=== PATIENT | male | born 1990 | race Caucasian/White ===

== ENCOUNTER 2021-06-30 03:32 | Emergency (ER) | payer SELFPAY ==
[2021-06-30] MEDS ORDERED: Diphtheria,Pertussis(Acell),Tetanus Vaccine 0.5 ML Syringe IM ONE (03:49)
[2021-06-30] MEDS ORDERED: Ibuprofen 600 MG Tab PO ONE (03:49)
[2021-06-30] MEDS ORDERED: Cephalexin 500 MG Cap PO ONE (03:49)
--- NOTE | 2021-06-30 03:56 | EDM.PDOC ---
ED HPI GENERAL MEDICAL PROBLEM - General Chief Complaint: Exposure to Heat or Cold Stated Complaint: BROWN BITE ON BOTH EARS Time Seen by Provider: 06/30/21 03:47 - History of Present Illness INITIAL COMMENTS - FREE TEXT/NARRATIVE: HISTORY AND PHYSICAL: History of present illness: This is a 31-year-old gentleman who presents to the ER today secondary to frostbite bilateral earlobes that occurred approximately 1/2 hours prior to arrival. Patient reports that he was outside for approximately 20 minutes prior to occurrence of the frostbite. Patient denies any recent fevers, shakes, chills, nausea, vomiting, diarrhea. Patient has no history of hypertension, diabetes, liver, lung, kidney problems. Patient is status is up-to-date. Patient reports pain discomfort to the area. Patient has drainage of his left earlobe. Patient reports he is has large gauge earrings inside his earlobes that were removed prior to arrival to the ED. Review of systems: As per history of present illness and below otherwise all systems reviewed and negative. Past medical history: As per history of present illness and as reviewed below otherwise noncontributory. Surgical history: As per history of present illness and as reviewed below otherwise noncontributory. Social history: No reported history of drug abuse. Family history: As per history of present illness and as reviewed below otherwise noncontributory. Physical exam: This patient was seen and evaluated during the 2019 SARS-CoV-2 novel coronavirus pandemic period. Community viral transmission is ongoing at time of this encounter and the emergency department is operating under pandemic response procedures. Constitutional: Patient is oriented to person, place, and time. Appears well- developed and well-nourished. No distress. HEENT: Moist mucous membranes Head: Normocephalic and atraumatic Eyes: Right eye exhibits no discharge. Left eye exhibits no discharge. No scleral icterus Neck: Normal range of motion. No tracheal deviation present. Cardiovascular: Normal rate and regular rhythm. Pulmonary: Effort normal, no respiratory distress. Abdominal: No distention Musculoskeletal: Normal range of motion Neurologic: Alert and oriented to person, place and time. Skin: [place], warm and dry. Psychiatric: Normal mood and affect. Behavior is normal. Judgment and thought content normal. Nursing note and vital signs have been reviewed Patient's ER physical exam is significant for earlobes that are bilaterally erythematous, indurated with a small blister at of the left earlobe that is draining clear serosanguineous fluid. Patient has sensation intact and is tender to touch. Exam is consistent with frostnip Diagnostics: [] Therapeutics: [] Assessment and plan: 31-year-old who presents ER today with signs and symptoms consistent with his frostbite to his earlobes bilaterally. This appears to be mild frostbite. Skin currently is erythematous with some blistering out of the left earlobe. Patient be given antibiotics as well as pain medicines. Patient be instructed to follow-up with surgery for evaluation in 1 week. Definitive disposition and diagnosis as appropriate pending reevaluation and review of above. ears Pain Score (Numeric/FACES): 9 - Related Data Allergies Allergy/AdvReac Type Severity Reaction Status Date / Time No Known Allergies Allergy Verified 06/30/21 03:40 Home Meds: Home Meds . [No Known Home Meds] 06/30/21 [History] Past Medical History Cardiovascular History: Reports: Heart Murmur - Past Surgical History GI Surgical History: Reports: Hernia Repair/Other Social & Family History - Family History Family Medical History: No Pertinent Family History - Tobacco Use Tobacco Use Status *Q: Current Every Day Tobacco User Years of Tobacco use: 10 Packs/Tins Daily: 0.5 - Caffeine Use Caffeine Use: Reports: Coffee - Recreational Drug Use Recreational Drug Use: No ED ROS GENERAL - Review of Systems Review Of Systems: See Below ED EXAM, GENERAL - Physical Exam Exam: See Below Course - Vital Signs Last Recorded V/S: Last Vital Signs Temp 97.8 F 06/30/21 03:40 Pulse 104 H 06/30/21 03:40 Resp 18 06/30/21 03:40 BP 164/82 H 06/30/21 03:40 Pulse Ox 99 06/30/21 03:40 - Orders/Labs/Meds Orders: Active Orders 24 hr Category Date Time Status Vaccine to be Administered/Admin Charge [RC] ASDIRECTED Care 06/30/21 03:49 Ordered Meds: Medications Discontinued Medications Generic Name Dose Route Start Last Admin Trade Name Freq PRN Reason Stop Dose Admin Cephalexin 500 mg 06/30/21 03:49 Cephalexin 500 Mg Cap PO 06/30/21 03:50 ONETIME ONE Diphtheria/Tetanus/Acell Pertussis 0.5 ml 06/30/21 03:49 Diphtheria,Pertussis(Acell),Tetanus Vaccine 0.5 Ml Syringe IM 06/30/21 03:50 .ONCE ONE Ibuprofen 600 mg 06/30/21 03:49 Ibuprofen 600 Mg Tab PO 06/30/21 03:50 ONETIME ONE Departure - Departure Time of Disposition: 03:56 Disposition: Home, Self-Care 01 Condition: Good Clinical Impression: Frostbite, Frostbite of ears, bilateral - Discharge Information Instructions: Frostbite Referrals: PCP,None [Primary Care Provider] - Additional Instructions: Your seen and evaluated in the ER today secondary to frostbite to both ears. At this time, it appears to be a mild case of frostbite. You will be started on pain medicines and antibiotics to assist with the healing. Please follow-up with surgery clinic in 1 week for reevaluation. The following information is given to patients seen in the emergency department who are being discharged to home. This information is to outline your options for follow-up care. We provide all patients seen in our emergency department with a follow-up referral. The need for follow-up, as well as the timing and circumstances, are variable depending upon the specifics of your emergency department visit. If you don't have a primary care physician on staff, we will provide you with a referral. We always advise you to contact your personal physician following an e mergency department visit to inform them of the circumstance of the visit and for follow-up with them and/or the need for any referrals to a consulting specialist. The emergency department will also refer you to a specialist when appropriate. This referral assures that you have the opportunity for follow-up care with a specialist. All of these measure are taken in an effort to provide you with op timal care, which includes your follow-up. Under all circumstances we always encourage you to contact your private physician who remains a resource for coordinating your care. When calling for follow-up care, please make the office aware that this follow-up is from your recent emergency room visit. If for any reason you are refused follow-up, please contact the [facility] Emergency Department at and asked to speak to the emergency department charge nurse. Matilde Pollock [facility] [address] [place] [id number] [facility] [address] [place] [id number] Sepsis Event Note (ED) - Evaluation Sepsis Screening Result: No Definite Risk - Focused Exam Vital Signs: Vital Signs Temp Pulse Resp BP Pulse Ox 06/30/21 03:40 97.8 F 104 H 18 164/82 H 99 - My Orders Last 24 Hours: My Active Orders 06/30/21 03:49 Vaccine to be Administered/Admin Charge [RC] ASDIRECTED - Assessment/Plan Last 24 Hours: My Active Orders 06/30/21 03:49 Vaccine to be Administered/Admin Charge [RC] ASDIRECTED
[2021-06-30] MEDS ORDERED: Acetaminophen/HYDROcodone 325-5 MG Tab PO ONE (03:58)
== END 2021-06-30 04:03 | disposition home or self-care (01) ==
LOC: MW.ED 03:32
DX: T33.012A Superficial frostbite of left ear, initial encounter (principal); T33.011A Superficial frostbite of right ear, initial encounter; Z23 Encounter for immunization; Z72.0 Tobacco use; X31.XXXA Exposure to excessive natural cold, initial encounter
CPT/HCPCS: 90471; 90715; 99283; A9270

== ENCOUNTER 2024-12-28 10:25 | Emergency (ER) | payer SELFPAY ==
[2024-12-28] MEDS: Ketorolac 30 MG/ML SDV IM STA (11:16)
== END 2024-12-28 11:39 | disposition home or self-care (01) ==
LOC: MW.ED 10:25
DX: S63.501A Unspecified sprain of right wrist, initial encounter (principal); Z75.3 Unavailability and inaccessibility of health-care facilities; W26.0XXA Contact with knife, initial encounter
CPT/HCPCS: 73110; 73130; 96372; 99283; J1885